=== PATIENT | female | born 1955 | race Caucasian/White ===

== ENCOUNTER → 2018-05-27 13:28 | Outpatient (CLI) | payer MEDICARE, MEDICAID ==
[~2018-05-27] VITALS: Ht 165.1 cm; Wt 57.3 kg
[2018-05-27 13:56] VITALS: Ht 165.1 cm; Wt 57.3 kg
== END | disposition home or self-care (01) ==
LOC: D.OPS 13:00
DX: D64.9 Anemia, unspecified (principal); D72.819 Decreased white blood cell count, unspecified; C65.9 Malignant neoplasm of unspecified renal pelvis; Z01.812 Encounter for preprocedural laboratory examination

== ENCOUNTER 2018-06-03 16:12 | Outpatient (CLI) | payer MEDICARE, MEDICAID ==
[~2018-06-03] VITALS: Ht 165.1 cm; Wt 57.3 kg
[2018-06-03 16:55] VITALS: BP 107/61; Ht 165.1 cm; Wt 57.3 kg
== END 2018-06-03 17:40 | disposition home or self-care (01) ==
LOC: D.OPS 16:12
DX: D64.9 Anemia, unspecified (principal); C65.9 Malignant neoplasm of unspecified renal pelvis; D72.819 Decreased white blood cell count, unspecified; Z01.812 Encounter for preprocedural laboratory examination

== ENCOUNTER → 2018-08-05 10:25 | Outpatient (CLI) | payer MEDICARE, MEDICAID ==
[~2018-08-05] VITALS: Ht 170.2 cm; Wt 51.8 kg
[~2018-08-05 10:25] MED LIST: ANTIVERT12.5 MG PO; ATIVAN1 MG; CARAFATE1 G/10 ML; CYCLOBENZAPRINE10 MG; CYMBALTA60 MG PO; FUROSEMIDE20 MG; K-TAB10 MEQ; LEVOTHYROXINE50 MCG PO; LIDOCAINE VISCOUS; NAPROSYN500 MG PO; NORCO 10-325 TA1 TAB; OMEPRAZOLE20 M1 PO; PHENERGAN25 M1; PREPLUS CA-FE1 EACH PO; PROTONIX40 MG; SULINDAC200 MG; SUMATRIPTAN SUC25 MG PO; TEMAZEPAM30 MG; TOPROL XL25 MG; TORSEMIDE20 MG PO; ZOFRAN ODT4 MG/UDTAB; ZOFRAN8 MG
[2018-08-05 10:50] LABS: HEMATOCRIT 30.3 % (36.0-48.0); HEMOGLOBIN 9.6 g/dL (12-16); MCH 35.6 pg (26.0-34.0); MCHC 31.7 g/dL (31.0-37.0); MCV 112.2 fL (80.0-100.0); MEAN PLATELET VOLUME 9.4 fL (7.4-10.4); RDW 15.1 % (11.5-14.5); WBC 2.5 10x3/uL (4.8-10.8)
[2018-08-05 10:59] LABS: ANION GAP 10.7 mmol/L (8-16); CALCIUM 8.8 mg/dL (8.5-10.1); CARBON DIOXIDE 33.1 mmol/L (21.0-32.0); POTASSIUM - SERUM 3.8 mmol/L (3.5-5.1)
[2018-08-05 11:14] LABS: INR 0.94 (0.85-1.17); PROTIME 12.1 SECONDS (11.6-15.0)
[2018-08-05 11:17] LABS: PLATELET COUNT 308 10x3/uL (130-400)
[2018-08-05 11:54] VITALS: BP 105/68; Ht 170.2 cm; Wt 51.8 kg
[2018-08-05 12:16] LABS: BASOPHILS 2 % (0-2); EOSINOPHILS 3 % (0-7); LYMPHOCYTES 38 % (15-50); MONOCYTES 14 % (2-11); NEUTROPHILS 37 % (40-80); PLATELET ESTIMATE NORMAL
--- NOTE | 2018-08-05 15:58 | NUR ---
PTDISCHARGE INSTRUCTIONS REVIEWED AT THIS TIME, PT VERBALIZES UNDERSTANDING. PT IV REMOVED AT THIS TIME, INTACT NO REDNESS OR SWELLING NOTED AT SITE.
== END | disposition home or self-care (01) ==
LOC: D.SP 10:25 → D.CT 11:00
PROVIDERS: Radiology Diagnostic Radiology
DX: D64.9 Anemia, unspecified (principal); D72.819 Decreased white blood cell count, unspecified